=== PATIENT | male | born 1990 | race Caucasian/White ===

== ENCOUNTER 2024-04-22 12:46 | Emergency (ER) | payer SELFPAY ==
[~2024-04-22] VITALS: Ht 177.8 cm; Wt 145.0 kg
[2024-04-22 13:19] LABS: BASO% 0.3 % (0-3); EOS% 0.3 % (0-8); HEMATOCRIT 43.6 % (39.0-50.0); HEMOGLOBIN 14.2 g/dl (14.0-18.0); IMMATURE GRANULOCYTES 0.1 % (0.0-5.0); MEAN CELL VOLUME 93.6 fL CALC (80.0-100.0); MEAN CORPUSCULAR HGB 30.5 pG CALC (26.0-32.0); MEAN CORPUSCULAR HGB CONC 32.6 g/dL CAL (32.0-36.0); MONO% 9.5 % (2-13); NEUT# 4.85 thou/uL (1.82-7.42); NEUT% 62.8 % (42-76); RED BLOOD COUNT 4.66 mill/uL (4.70-6.10); RED CELL DISTRI WIDTH 12.7 % (11.5-15.5)
[2024-04-22 13:21] LABS: URINE BLOOD DIPSTICK Negative (NEGATIVE); URINE GLUCOSE - DIPSTICK Negative (NEGATIVE); URINE KETONE 80 mg/dL (NEGATIVE); URINE LEUK ESTERASE Negative (NEGATIVE); URINE NITRITE - DIPSTICK Negative (Negative); URINE PH 5.5 (4.5-8.0); URINE PROTEIN - DIPSTICK Trace mg/dL (NEG-TRACE); URINE SPECIFIC GRAVITY >=1.030
[2024-04-22 13:24] LABS: URINE COLOR Dark yellow
[2024-04-22 13:34] LABS: ALBUMIN 4.2 g/dL (3.2-5.0); CREATININE 0.9 mg/dL (0.7-1.3); POTASSIUM 3.4 mmol/l (3.5-5.1); TOTAL PROTEIN 6.6 g/dL (6.3-8.2)
[2024-04-22] MEDS ORDERED: POTASSIUM CHLORIDE 20 MEQ/TAB PO ONE (14:10)
[2024-04-22 14:31] VITALS: BP 124/79
[2024-04-22 15:00] VITALS: BP 117/69
[2024-04-22 15:30] VITALS: BP 119/68
[2024-04-22 16:00] VITALS: BP 110/69
[2024-04-22 16:30] VITALS: BP 123/72
[2024-04-22 17:00] VITALS: BP 110/71
== END 2024-04-22 17:40 | DRG 880 ==
LOC: ED 12:46
PROVIDERS: Nurse Practitioner Family
DX: R45.851 Suicidal ideations (principal); G91.9 Hydrocephalus, unspecified; G40.909 Epilepsy, unspecified, not intractable, without status epilepticus; F10.10 Alcohol abuse, uncomplicated; T42.76XA Underdosing of unspecified antiepileptic and sedative-hypnotic drugs, initial encounter; T43.506A Underdosing of unspecified antipsychotics and neuroleptics, initial encounter; Z91.128 Patient's intentional underdosing of medication regimen for other reason; Z98.2 Presence of cerebrospinal fluid drainage device; Z59.00 Homelessness unspecified; Z20.822 Contact with and (suspected) exposure to COVID-19